=== PATIENT | male | born 1935 | race Caucasian/White ===

== ENCOUNTER 2016-08-22 11:02 | Outpatient (CLI) | payer MEDICARE, OTHER ==
[~2016-08-22] VITALS: Ht 175.3 cm; Wt 84.1 kg
--- NOTE | ~2016-08-22 | HEMODYNAMI ---
PATIENT:CHANO MICHELE MEDICAL RECORD: [id number] : 31 LOCATION:D.CAT ADMISSION DATE: 08/22/16 Generatedon:08/22/201614:41 Patient name: CHANO MICHELE Patient #: [id number] SSN: D OB: 1935 Date of study: 08/22/2016 Page: Of Hemodynamic Procedure Report Patient Data Patient Demographics Procedure consent was obtained First Name: CHANO Gender: Male Last Name: RYNE : 1935 Middle Initial: A Age: 80 year(s) Patient #: [id number] Race: Additional ID: [id number] Contact details Address: [address] [place] [address] State: [place] City: [place] Zip code: [address] Admission Admission Data Admission Date: 08/22/2016 Admission Time: 11:02 Procedure Procedure Types Cath Procedure Diagnostic Procedure Cardioversion Procedure Description Procedure Date Procedure Date: 08/22/2016 Procedure Start Time: 14:31 Procedure End Time: 14:39 Procedure Staff Name Function Maria C Aragon RN Nurse Juan Carlos Gill RT Monitor Gregory Molina MD Performing Physician Jorge Gilman CRNA Additional personnel Procedure Medications Medication Administration Route Dosage Oxygen NC 4 l/min Refer to Anesthesia Notes for Sedation Medications Hemodynamics Rest Heart Rate: 76 (bpm) Snapshots Pre Cath Intra NCS Post Cath Vital Signs Time Heart Resp SPO2 NIBP Rhythm Pain Sedation Rate (ipm) (%) (mmHg) Status Level (bpm) 14:26:44 78 19 99 112/84(94) A-Fib 0 (11) 10(A) , No pain 14:30:56 71 22 93 90/60(73) NSR 0 (11) 9(A) , No pain 14:34:58 89 21 94 88/63(71) NSR 0 (11) 9(A) , No pain 14:36:34 94 27 96 98/87(95) NSR 0 (11) 9(A) , No pain 14:37:32 86 27 99 89/63(74) NSR 0 (11) 10(A) , No pain 14:38:35 79 27 98 93/72(85) NSR 0 (11) 10(A) , No pain Medications Time Medication Route Dose Verified Delivered Reason Notes Effective ness by by 14:26:21 Oxygen NC 4 Maria C Lombardi used for l/min Margo Aragon pipeline gang supervisor RN 14::26 Refer to Maria C Lombardi Anesthesia Margo Aragon Notes for RN RN Sedation Medications Procedure Log Time Note 14:17:41 Informed consent obtained and on chart 14:17:47 Diagnostic Cath Status : Elective 14:18:24 Maria C Aragon RN sent for patient. Start room use. 14:18:26 Time tracking: Regular hours 14:18:31 Plan of Care:Hemodynamics will remain stable., Cardiac rhythm will remain stable., Comfort level will be maintained., Respiratory function will remain adequate., Patient/ family verbilizes understanding of procedure., Procedure tolerated without complication., Recovers from procedure without complications.. 14:18:39 Patient received from Pre/Post Procedure Room to [facility] 3 Alert and oriented. Tansferred to table in Supine position. 14:18:42 Warm blankets applied, and marina hugger turned on for patient comfort. 14:18:43 Correct patient and procedure confirmed by team. 14:25:48 Vital chart was started 14:26:11 Baseline sample Acquired. 14:26:18 Rhythm: atrial fibrillation 14:26:21 Oxygen 4 l/min NC was administered by Maria C Aragon RN; used for procedure; 14::26 Refer to Anesthesia Notes for Sedation Medications was administered by Maria C Aragon RN; ; 14:27:09 H&P Date Dictated: 08/15/2016 Within 30 days and on chart., H&P Addendum completed by physician on day of procedure. (MUST COMPLETE FOR ALL OUTPATIENTS). 14:27:11 Pre-procedure instructions explained to patient. 14:27:12 Pre-op teaching completed and patient verbalized understanding. 14:27:14 Family in waiting room. 14:27:48 ANESTHESIA PRESENT PAUL GILMAN 14:27:57 Quick Combo opened to sterile field. 14:27:58 ------Cardioversion------ 14:27:58 Quick combo pads placed on patients chest and back. 14:28:26 IV patent on arrival in right forearm with 0.9% NaCl at KVO. 14:28:31 Alarms reviewed by Lydia Sommer 14:28:34 Physician arrived 14::34 --------ALL STOP TIME OUT------ 14:28:35 Final Timeout: patient, procedure, and site verified with staff and physician. All members of the team are in agreement. 14:28:45 Mid Chest site verified by team. 14::34 Physical assessment completed. ASA score P 2 - A patient with mild systemic disease as per Gregory Molina MD. 14:29:40 Sedation plan: TIVA Propofol 14:29:45 Procedure started. 14:30:05 Defibrillator synced and charged to 200 Joules. 14:30:06 Shock delivered. 14:30:15 Patient cardioverted to sinus rhythm , paced. 14:31:17 Full Disclosure recording started 14:32:04 Procedure ended.(Physican Out) 14:36:07 Procedure and supply charges have been captured, reviewed, submitted and are correct. 14:39:42 Vital chart was stopped 14:39:46 See physician's report for complete and final results. 14:39:53 Patient transfered to Pre/Post Procedure Room with Stretcher. 14:39:58 Procedure ended. 14:39:58 Full Disclosure recording stopped 14:40:01 End room use (Document Last) Device Usage Item Manufacture Quantity Catalog Hospital Part Current Minimal Lot# / Name Number Charge Number Stock Stock [employer]# Code [employer] 1 [id number] Combo Signature Audit [place] Stage Time Signature Unsigned Intra-Procedure 08/22/2016 Juan Carlos Gill 2:41:30 PM RT(R) (CV) Signatures Monitor : Juan Carlos Gill RT Signature : Date : Time : [place] [id number]
[2016-08-22] MEDS ORDERED: KLOR-CON M1515 MEQ PO (11:21)
[2016-08-22] MEDS ORDERED: FLOMAX0.4 MG PO (11:22)
[2016-08-22] MEDS ORDERED: FUROSEMIDE20 MG PO (11:23)
[2016-08-22] MEDS ORDERED: LEVOXYL25 MCG PO (11:23)
[2016-08-22] MEDS ORDERED: ELIQUIS5 MG PO (11:24)
[2016-08-22] MEDS ORDERED: OMEPRAZOLE20 M1 PO (11:24)
[2016-08-22] MEDS ORDERED: METOLAZONE5 MG PO (11:24)
[2016-08-22] MEDS ORDERED: PACERONE200 MG PO (11:25)
[2016-08-22] MEDS ORDERED: KLONOPIN0.5 MG PO (11:25)
[2016-08-22] MEDS ORDERED: ICAPS AREDS1 TAB.SA PO (11:26)
[2016-08-22] MEDS ORDERED: FOLIC ACID0.8 MG PO (11:26)
[2016-08-22] MEDS ORDERED: ZYRTEC10 MG PO (11:27)
[2016-08-22] MEDS ORDERED: VITAMIN B-121000 MCG PO (11:27)
[2016-08-22 11:28] VITALS: BP 115/84; Ht 175.3 cm; Wt 84.1 kg
[2016-08-22 11:43] LABS: BASOPHILS 0.1 % (0-2); EOSINOPHILS 1.5 % (0-7); HEMATOCRIT 37.3 % (42.0-54.0); IMMATURE GRANULOCYTES 0.4 % (0-5); LYMPHOCYTES 10.3 % (15-50); MCH 27.4 pg (26.0-34.0); MCHC 32.2 g/dL (31.0-37.0); MCV 85.2 fL (80.0-100.0); MEAN PLATELET VOLUME 9.6 fL (7.4-10.4); MONOCYTES 10.9 % (2-11); NEUTROPHILS 76.8 % (40-80); PLATELET COUNT 146 10x3/uL (130-400); RBC 4.38 10x6/uL (4.20-6.10); RDW 15.9 % (11.5-14.5); WBC 6.9 10x3/uL (4.8-10.8)
[2016-08-22 11:53] LABS: ANION GAP 13.7 mmol/L (8-16); CALCIUM 8.7 mg/dL (8.5-10.1); CARBON DIOXIDE 27.2 mmol/L (21.0-32.0); CREATININE - SERUM 1.6 mg/dL (0.6-1.3); POTASSIUM - SERUM 3.9 mmol/L (3.5-5.1)
[2016-08-22 11:54] LABS: INR 1.61 (0.85-1.17); PROTIME 19.1 SECONDS (11.6-15.0)
--- NOTE | 2016-08-22 15:00 | NUR ---
SANDWICH AND COLA SERVED, AT SIDE, DENIES PAIN
--- NOTE | 2016-08-22 15:30 | NUR ---
NO CHANGE, SITTING UP WITH AT SIDE, NSR
--- NOTE | 2016-08-22 16:02 | NUR ---
IV D'C WITH CATH TIP INTACT, WRITTEN AND VERBAL INSTRUCTIONS GIVEN. CONTINUES IN NSR
--- NOTE | 2016-08-26 12:57 | OP ---
PATIENT NAME: CHANO MICHELE MEDICAL RECORD: [id number] :31 LOCATION:D.CAT ADMISSION DATE: SURGEON: RUFINO CONDE MD OPERATION DATE: 08/22/16 CARDIOVERSION NOTE INDICATION: Atrial fibrillation, symptomatic. PROCEDURE: After general sedation anesthesia via TIVA, a single synchronized shock was successful in restoring atrial fibrillation to normal sinus rhythm. IMPRESSION: Successful cardioversion. COMPLICATIONS: None. RUFINO CONDE MD at 1257 CC: [id number] DICTATION DATE: 08/22/16 1400 STONE UNLOADER: DM 08/23/16 1510 DEP CLI 08/22/16 [place] [id number] [place] [address]
== END 2016-08-22 16:00 | disposition home or self-care (01) ==
LOC: D.CATH 11:02
PROVIDERS: Internal Medicine Interventional Cardiology
DX: I48.91 Unspecified atrial fibrillation (principal); Z95.0 Presence of cardiac pacemaker; I10 Essential (primary) hypertension; Z01.812 Encounter for preprocedural laboratory examination